=== PATIENT | female | born 1955 | race African-American/Black ===

== ENCOUNTER 2024-10-12 17:30 | Emergency (ER) | payer MEDICAID ==
[~2024-10-12] VITALS: Ht 167.6 cm; Wt 90.0 kg
[~2024-10-12 17:30] MED LIST: ASPI-1406 PO; CLOP-31 PO; GABA-529 PO; HYDR-4379 MT; IBUP-2029 PO; LEVE750T66 MT; LEVO750T68 MT; LIP40 PO; ONDA-239 PO
[2024-10-12 17:35] VITALS: TEMP 36.9; O2SAT 99
[2024-10-12 20:12] VITALS: BP 123/68; PULSE 104; RESP 18; O2SAT 99
== END 2024-10-12 21:18 | disposition home or self-care (01) ==
LOC: ER 17:30
DX: Z00.8 Encounter for other general examination (principal); E11.9 Type 2 diabetes mellitus without complications; Z79.02 Long term (current) use of antithrombotics/antiplatelets; Z79.82 Long term (current) use of aspirin; Z79.899 Other long term (current) drug therapy
CPT/HCPCS: 99283; 99291